=== PATIENT | male | born 1940 | race Caucasian/White ===

== ENCOUNTER 2017-11-14 18:01 | Inpatient (IN) ==
--- NOTE | 2017-11-14 18:07 | Emergency Department Note ---
Disposition Clinical Impression: Femur fracture, left Qualifiers: Encounter type: initial encounter Femur location: shaft Fracture type: closed Fracture morphology: spiral Fracture alignment: displaced Qualified Code(s): S72.342A - Displaced spiral fracture of shaft of left femur, initial encounter for closed fracture Disposition: Admitted As Inpatient Condition: Fair Forms: ED Satisfaction Letter Time of Disposition: 19:21 Fall HPI - General Chief Complaint: ED Fall Stated Complaint: Fall Time Seen by Provider: 11/14/17 18:04 Source: patient, EMS Mode of arrival: EMS Limitations: no limitations Nursing Notes Reviewed: Yes Vital Signs Reviewed: Yes - History of Present Illness HPI Narrative: 77-year-old was at track meet and was going down the bleacher steps and says his momentum got away from him and he went forward and fell down onto the bleachers. He has pain in the left hip. He has obvious external rotation and shortening on arrival. Pt Subjective Complaint: fall Onset (ago): Just SIDEHAND Fall From: standing Fall Witnessed: yes Place Fall Occurred: street Loss of Consciousness: none Prolonged Down Time?: no Symptoms Prior to Fall: none Context: tripped/slipped Location of injury - extremities: Left: hip Severity: moderate, severe Quality: aching Associated symptoms (after fall): Reports: denies All systems ED: reviewed and negative except as stated. Constitutional: Denies: fever, chills, weakness, weight change Eyes: Denies: eye pain, eye discharge, vision change ENT ED: Denies: ear pain, throat pain, dental pain, hearing loss, epistaxis, congestion, dysphagia Cardiovascular: Denies: chest pain, palpitations, dyspnea on exertion, edema, syncope Respiratory: Denies: cough, dyspnea, wheezes, hemoptysis, stridor Gastrointestinal: Denies: abdominal pain, nausea, vomiting, diarrhea, constipation, hematemesis, melena, hematochezia Genitourinary: Denies: urgency, dysuria, frequency, hematuria Musculoskeletal: Reports: arthralgia. Denies: back pain, neck pain, myalgia Integumentary: Denies: rash, abrasion, lesions Neurological: Denies: headache, weakness, numbness, paresthesias, confusion, abnormal gait, vertigo Psychiatric: Denies: anxiety, depression, suicidal thoughts, homicidal thoughts , auditory hallucinations, visual hallucinations Endocrine: Denies: fatigue Hematological/Lymphatic: Denies: easy bleeding, easy bruising Allergic/Immunologic: Denies: facial swelling, urticaria Physical Exam - General Limitations: no limitations General appearance: alert, in no apparent distress - Head Head exam: atraumatic, normocephalic, normal inspection - Eye Eye exam: Present: normal appearance - ENT ENT exam: normal exam, normal oropharynx, mucous membranes moist - Neck Neck exam: Present: normal inspection, full ROM, trachea midline - Chest Chest inspection: Present: normal inspection, symmetric chest wall rise - Respiratory Respiratory exam: Present: normal lung sounds bilaterally - Cardiovascular Cardiovascular exam: Present: regular rate, normal rhythm, normal heart sounds - Abdominal Exam Abdominal exam: Present: soft, Non-Tender. Absent: tenderness, distention, guarding, rebound, rigidity - Expanded Lower Extremity Exam Hip/Pelvis exam: Present: tenderness, external rotation, shortening Neurovascular/Tendon exam: Absent: motor deficit, sensory deficit, tendon deficit Gait: observed and normal - Back Exam Back exam: Present: normal inspection, full ROM. Absent: tenderness - Neurological Exam Neurological exam: Present: alert, oriented X3 - Psychiatric Psychiatric exam: Present: normal affect, normal mood - Skin Skin exam: Present: warm, dry, intact, normal color Course - Consultations Consultation #1: Discussed with , admit. Time: 19:00 Consultation #2: Discussed with adm Sachait. T Time: 19:20 Vital Signs Temperature 97.3 F L 11/14/17 18:02 Pulse Rate 78 11/14/17 18:02 Respiratory Rate 22 11/14/17 18:02 Blood Pressure 172/93 11/14/17 18:02 O2 Sat by Pulse Oximetry 98 11/14/17 18:02 Temperature 97.3 F L 11/14/17 18:02 Pulse Rate 78 11/14/17 18:02 Respiratory Rate 22 11/14/17 18:02 Blood Pressure 172/93 11/14/17 18:02 O2 Sat by Pulse Oximetry 98 11/14/17 18:02 Oxygen Delivery Oxygen Delivery Room Air Fall - Radiology Data Radiology results reviewed: Yes I reviewed the patient's radiology results.
[2017-11-14] MEDS ORDERED: Ondansetron 4 MG/2 ML VIAL IVP ONE (19:06)
[2017-11-14] MEDS ORDERED: *HR* FentaNYL (PF) 100 MCG/2 ML VIAL IVP ONE ×2 (19:06→21:24)
[2017-11-14 19:45] LABS: Bilirubin,Urine Negative (Negative); Blood,Urine Negative (Negative); Clarity,Urine Clear (Clear); Color,Urine Yellow (Yellow); Glucose,Urine (UA) Normal (Normal); Ketones,Urine Negative (Negative); Leukocyte Esterase,Urine Negative (Negative); Nitrite,Urine Negative (Negative); Protein,Urine 100 mg/dL (Neg-Trace); Specific Gravity,Urine 1.014 (1.010-1.025); Urobilinogen,Urine Normal (Normal)
[2017-11-14 19:48] LABS: Bacteria,Urine None Seen per hpf (None-Few); Hyaline Casts,Urine None Seen per lpf (None-Few); RBC,Urine 0-3 per hpf (0-3); Squamous Epithelial Cell,Urine Many per lpf (None-Few); WBC,Urine 0-3 per hpf (0-3)
[2017-11-14 19:54] LABS: Calcium 9.3 mg/dL (8.6-10.3); Potassium 4.4 mEq/L (3.5-5.1)
[2017-11-14 19:55] LABS: Basophils # 0.1 K/mcL (0.0-0.2); Basophils % 0.6 %; Eosinophils # 0.1 K/mcL (0.0-0.6); Eosinophils % 0.8 %; Hematocrit 38.5 % (37.5-50.1); Hemoglobin 12.9 g/dL (12.9-16.9); Immature Granulocytes % 0.3 % (0-4); Lymphocytes # 1.5 K/mcL (0.6-4.6); Lymphocytes % 16.8 %; Mean Corpuscular HGB Conc 33.5 g/dL (31.6-35.5); Mean Corpuscular Hemoglobin 30.9 pg (28.0-33.3); Mean Corpuscular Volume 92.1 fL (83.0-100.0); Mean Platelet Volume 11.2 fL (9.4-12.4); Monocytes # 0.5 K/mcL (0.0-1.3); Monocytes % 5.2 %; Neutrophils # 6.6 K/mcL (1.6-8.9); Platelet Count 196 K/mcL (140-400); Red Blood Count 4.18 M/mcL (4.19-5.50); Red Cell Distribution Width 14.3 % (11.5-14.5); Segmented Neutrophils % 76.3 %
[2017-11-14] MEDS ORDERED: Ondansetron 4 MG/2 ML VIAL IVP PRN (21:43)
[2017-11-14] MEDS ORDERED: Naloxone 0.4 MG/ML INJ IVP PRN (21:43)
[2017-11-14] MEDS ORDERED: Acetaminophen 325 MG TABLET PO PRN (21:43)
[2017-11-14] MEDS ORDERED: *HR* Promethazine 25 MG/ML VIAL IVP PRN (21:43)
[2017-11-14] MEDS ORDERED: Dextrose Gel 15 GM/37.5 ML TUBE PO PRN ×2 (21:53)
[2017-11-14] MEDS ORDERED: *HR* Dextrose 50 % in Water (Syg) 50 ML SYRINGE IVP PRN (21:53)
[2017-11-14] MEDS ORDERED: D5% in Water 1,000 ML IVC PRN (21:53)
--- NOTE | 2017-11-14 22:04 | Internal Med History&Physical ---
Date of Encounter: 11/14/17 Time of Encounter: 20:00 Internal Medicine - H&P: HPI Chief complaint: Fall with Left leg pain Admitted From: Emergency Dept Plans for Post Hospital Care: Home History of present illness: Mr. Handley is a 77 year old male with a known past medical history of hypertension, diabetes type II, and CKD-3 pt was presented to ER with Severe left leg pain and unable to bare any weight, which developed after a ground level fall this evening. According pt he was at track meet and was going down the bleacher steps and says his momentum got away from him and he went forward and fell down onto the bleachers. His Left leg X ray showed comminuted shaft width E displaced transverse fracture proximal left femoral diaphysis. He denied any CP / SOB. Denied any previous heart problems. He had Rt Knee repair and appendectomy in the past. Past Med Surg Social Fam HX - Past Medical History Medical history: diabetes, hyperlipidemia, hypertension Psychiatric history: no psych history - Past Surgical History Surgical History: appendectomy, orthopedic, other (Right knee repair) - Social History Smoking Status: Never smoker Smokeless Tobacco Status: No Alcohol use: none Drug use: none - Additional Family History Additional family history: Family hsitory reviewed and non contribuitory to current problem. Internal Medicine - H&P: Meds Acetaminophen [Tylenol Arthritis] 650 mg PO BID 11/14/17 [History] Allopurinol [Zyloprim 100 MG] 100 mg PO DAILY 11/14/17 [History] Cyanocobalamin (Vitamin B-12) [Vitamin B12] 1,000 mcg PO DAILY 11/14/17 [History ] Glucosamine/Chondr Isaacs A Sod [Glucosamine-Chondroitin Tablet] 1 each PO BID 11/14 [History] Lisinopril [Zestril] 5 mg PO DAILY 11/14/17 [History] Naproxen Sodium [Aleve] 220 mg PO Q12H PRN 11/14/17 [History] Pioglitazone [Actos] 15 mg PO DAILY 11/14/17 [History] glipiZIDE [Glipizide ER] 20 mg PO DAILY 11/14/17 [History] metFORMIN [Glucophage] 500 mg PO BIDWM 11/14/17 [History] 3 Allergy/AdvReac Type Severity Reaction Status Date / Time No Known Allergies Allergy Verified 11/14/17 19:21 All Systems PM: A 10-system review of systems was performed and is negative for pertinent findings except as documented above in the HPI. Review of systems: All the systems are reviewed everything is benign except the systems and symptoms I mentioned in the history of present illness - Constitutional Vitals: Temp Pulse Resp BP Pulse Ox 97.3 F L 84 16 163/88 94 11/14/17 18:02 11/14/17 21:22 11/14/17 21:22 11/14/17 21:22 11/14/17 21:22 General appearance: Present: A&O X 3, no acute distress, answers questions appropriately - Head Head exam: Present: atraumatic, normal inspection - Neck Neck exam general surgery: Present: supple - Respiratory Respiratory exam: Present: decreased breath sounds. Absent: rales, respiratory distress, rhonchi, wheezes - Cardiovascular Cardiovascular exam: Present: RRR, +S1, +S2. Absent: tachycardia - GI/Abdominal GI/Abdominal exam: Present: normal bowel sounds, soft. Absent: rebound, rigid, tenderness - Extremities Exam Extremities exam: Present: tenderness (severe tenderness in Left leg). Absent: calf tenderness, pedal edema Additional comments: Severe swelling noticed in Left leg at mid thigh region. No laceration / no ecchymosis noticed - Back Exam Back exam: Absent: CVA tenderness (L), CVA tenderness (R) - Neurological Exam Neurological exam: Present: alert, oriented X3 - Psychiatric Psychiatric exam: Present: normal affect, normal mood - Skin Skin exam: Absent: rash Internal Med - H&P Results - Labs CBC & Chem 7: 11/14/17 19:23 11/14/17 19:23 - Assessment and plan (1) Femur fracture, left Current Visit: Yes Status: Acute Assessment and plan: Admit the pt into Med Surg Reviewed X ray Left leg - noticed communited Left proximal femur fx Orth[facility] consulted Possible surgery in AM NPO after mid night IV hydration IV analgesics continue symptomatic and supportive care reviewed chest x-ray by myself- no acute infiltrates/no consolidation noticed will obtain EKG patient is at intermediate risk for major surgery like left femur repair Qualifiers: Encounter type: initial encounter Femur location: shaft Fracture type: closed Fracture morphology: spiral Fracture alignment: displaced Qualified Code(s): S72.342A - Displaced spiral fracture of shaft of left femur, initial encounter for closed fracture (2) HTN (hypertension) Current Visit: Yes Status: Acute Assessment and plan: resumed home meds Fairly controlled mostly due to pain started him on IV hydralazine PRN Qualifiers: Hypertension type: essential hypertension Qualified Code(s): I10 - Essential (primary) hypertension (3) DM2 (diabetes mellitus, type 2) Current Visit: Yes Status: Acute Assessment and plan: Held PO meds placed him on ISS check HbA1C Qualifiers: Diabetes mellitus manager intermediate insulin use: without skilled nursing use Chronic kidney disease stage: stage 2 (mild) Qualified Code(s): E11.22 - Type 2 diabetes mellitus with diabetic chronic kidney disease; N18.2 - Chronic kidney disease, stage 2 (mild); N18.2 - Chronic kidney disease, stage 2 (mild) (4) CKD (chronic kidney disease) stage 2, GFR 60-89 ml/min Current Visit: Yes Status: Acute Assessment and plan: Stable Cr..At baseline (5) Left leg pain Current Visit: Yes Status: Acute (6) DVT prophylaxis Current Visit: Yes Status: Acute Assessment and plan: on SQ heparin now after surgery will switch to Lovenox 30mg renally dosed - Time Spent With Patient Total time spent is greater than 50% in coordination of care (as documented) at patient's floor/unit and/or counseling patient:
[2017-11-15] MEDS: 0.9 % Sodium Chloride 1,000 ML IVC SCH ×2 (00:16→13:15)
[2017-11-15] MEDS: *HR* HYDROcodone/Acet 5/325 mg TABLET PO PRN ×3 (00:30→17:18)
[2017-11-15] MEDS: *HR* FentaNYL (PF) 100 MCG/2 ML VIAL IVP PRN ×4 (02:07→23:24)
[2017-11-15 05:23] LABS: Basophils % 0.4 %; Eosinophils # 0.1 K/mcL (0.0-0.6); Eosinophils % 0.7 %; Hematocrit 36.5 % (37.5-50.1); Hemoglobin 12.2 g/dL (12.9-16.9); Immature Granulocytes % 0.3 % (0-4); Lymphocytes # 1.9 K/mcL (0.6-4.6); Lymphocytes % 25.6 %; Mean Corpuscular HGB Conc 33.4 g/dL (31.6-35.5); Mean Corpuscular Hemoglobin 31.3 pg (28.0-33.3); Mean Corpuscular Volume 93.6 fL (83.0-100.0); Monocytes # 0.6 K/mcL (0.0-1.3); Monocytes % 8.6 %; Neutrophils # 4.7 K/mcL (1.6-8.9); Platelet Count 180 K/mcL (140-400); Red Cell Distribution Width 14.2 % (11.5-14.5); Segmented Neutrophils % 64.4 %
[2017-11-15 05:27] LABS: INR 1.1; Prothrombin Time 11.7 Seconds (9.4-12.1)
[2017-11-15 05:43] LABS: BUN/Creatinine Ratio 17 (6-26); Blood Urea Nitrogen 22 mg/dL (8-23); Calcium 8.8 mg/dL (8.6-10.3); Carbon Dioxide 23 mEq/L (23-29); Chloride 108 mEq/L (98-107); Glucose 197 mg/dL (70-105); Osmolality,Calculated 295 (280-300); Potassium 4.2 mEq/L (3.5-5.1); Sodium 138 mEq/L (136-145); eGFR For African Americans > 60 (> 60); eGFR For Non-African Americans 52 (> 60)
[2017-11-15] MEDS: *HR* Heparin 5,000 UNIT/ML VIAL SQ SCH ×2 (07:15→16:59)
[2017-11-15] MEDS: Insulin LISPRO 300 UNITS/3 ML VIAL SQ SCH ×3 (08:16→16:57)
[2017-11-15] MEDS: Cyanocobalamin (B-12) 1,000 MCG TABLET PO SCH (08:19)
[2017-11-15 08:59] LABS: Estimated Average Glucose 151 mg/dl; Hemoglobin A1C 6.9 %
[2017-11-15] MEDS ORDERED: NON-FORMULARY MEDICATION 1 EACH EACH (Acetaminophen [Tylenol Arthritis] 650 MG) PO SCH (09:00)
--- NOTE | 2017-11-15 10:41 | Orthopedic Consult Note ---
Date of Encounter: 11/15/17 Time of Encounter: 09:15 Assessment and Plan (1) Femur fracture, left Current Visit: Yes Status: Acute Left femural shaft fracture will require surgical intervention. Plan for left hip IM nailing tomorrow by Dr. Rios. I discussed the procedure as well as r/b/ a with patient and family and they expressed understanding. All questions answered, consent signed and placed in chart. NPO after midnight tonight. Pain control per hospitalist. Qualifiers: Encounter type: initial encounter Femur location: shaft Fracture type: closed Fracture morphology: spiral Fracture alignment: displaced Qualified Code(s): S72.342A - Displaced spiral fracture of shaft of left femur, initial encounter for closed fracture (2) DVT prophylaxis Current Visit: Yes Status: Acute POSTOP - will require lovenox for 2 weeks then transition to aspirin 325mg daily for 4 weeks. 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 Handley is a 77 year old male who presented to the ER last night for left hip pain. He tripped while walking on a flat walkway on [address] and fell landing on the left side. He had immediate pain to left hip and not able to ambulate afterwards. He normally is very active and ambulates well. Currently pain is well controlled and described as aching to outside of left hip, does not radiate down leg or into back. Movement of the leg makes pain worse, better at rest. Denies any numbness or tingling to extremity. Denies denies hitting head, LOC or pain anywhere else. Denies chest pain, SOB, fevers. Past Med Surg Social Fam HX - Past Medical History Medical history: diabetes, hyperlipidemia, hypertension Psychiatric history: no psych history - Past Surgical History Surgical History: appendectomy, orthopedic, other - Social History Smoking Status: Never smoker Smokeless Tobacco Status: No Alcohol use: none Drug use: none - Family History Mother Hx Family Endocrine Disorder: Yes (diabetes) Medications and Allergies Acetaminophen [Tylenol Arthritis] 650 mg PO BID 11/14/17 [History] Allopurinol [Zyloprim 100 MG] 100 mg PO DAILY 11/14/17 [History] Cyanocobalamin (Vitamin B-12) [Vitamin B12] 1,000 mcg PO DAILY 11/14/17 [History ] Glucosamine/Chondr Isaacs A Sod [Glucosamine-Chondroitin Tablet] 1 each PO BID 11/14 [History] Lisinopril [Zestril] 5 mg PO DAILY 11/14/17 [History] Naproxen Sodium [Aleve] 220 mg PO Q12H PRN 11/14/17 [History] Pioglitazone [Actos] 15 mg PO DAILY 11/14/17 [History] glipiZIDE [Glipizide ER] 20 mg PO DAILY 11/14/17 [History] metFORMIN [Glucophage] 500 mg PO BIDWM 11/14/17 [History] 3 Allergy/AdvReac Type Severity Reaction Status Date / Time No Known Allergies Allergy Verified 11/14/17 19:21 All Systems Reviewed: The remainder of the systems were reviewed and are negative - Constitutional Constitutional: as per HPI - Cardiovascular Cardiovascular: as per HPI - Respiratory Respiratory: as per HPI - Musculoskeletal Musculoskeletal: as per HPI Physical Exam - Constitutional Vitals: Temp Pulse Resp BP Pulse Ox 98.7 F 77 18 155/94 95 11/15/17 07:57 11/15/17 07:57 11/15/17 07:57 11/15/17 07:57 11/15/17 07:57 - Hip left Tenderness with palpation: anterior, lateral (no open wounds or lesions noted to left hip, LLE is shortened and externally rotated, moderate tenderness to palpation of lateral hip, no calf tenderness, ROM of hip restricted secondary to known fracture. good dorsiflexion of foot. grossly NV intact) Results - Labs Result Diagrams: 11/15/17 05:05 11/15/17 05:05 Labs: Abnormal lab results RBC 3.90 M/mcL (4.19-5.50) L 11/15/17 05:05 Hgb 12.2 g/dL (12.9-16.9) L 11/15/17 05:05 Hct 36.5 % (37.5-50.1) L 11/15/17 05:05 Chloride 108 mEq/L (98-107) H 11/15/17 05:05 Creatinine 1.33 mg/dL (0.70-1.30) H 11/15/17 05:05 Est GFR (Non-Af Amer) 52 (> 60) L 11/15/17 05:05 Glucose 197 mg/dL (70-105) H 11/15/17 05:05 POC Glucose 148 mg/dL (68-89) H 11/15/17 08:08 Hemoglobin A1c 6.9 % (-5.6) H 11/15/17 05:05 Urine Protein 100 mg/dL (Neg-Trace) H 11/14/17 19:37 Ur Squamous Epith Cells Many per lpf (None-Few) H 11/14/17 19:37 H & H 11/15/17 Range/Units 05:05 Hgb 12.2 L (12.9-16.9) g/dL Hct 36.5 L (37.5-50.1) % All other labs normal. - Diagnostic results Hip x-ray: report reviewed, image reviewed Consult Discharge Plan - Plan Referrals: Gabriel So DO [Primary Care Provider] - - Attending Attestation Case and plan of care discussed with supervising physician who was available for all aspects of care.
--- NOTE | 2017-11-15 12:25 | Internal Med Progress Note ---
Date of Encounter: 11/15/17 Time of Encounter: 12:23 - Assessment and plan (1) Femur fracture, left Current Visit: Yes Status: Acute Assessment and plan: Admit the pt into Med Surg X ray Left leg communited Left proximal femur fx Ortho [facility] consulted Surgery in AM NPO after mid night IV hydration Pain control patient is at intermediate risk for major surgery like left femur repair Qualifiers: Encounter type: initial encounter Femur location: shaft Fracture type: closed Fracture morphology: spiral Fracture alignment: displaced Qualified Code(s): S72.342A - Displaced spiral fracture of shaft of left femur, initial encounter for closed fracture (2) HTN (hypertension) Current Visit: Yes Status: Acute Assessment and plan: resumed home meds IV hydralazine PRN Qualifiers: Hypertension type: essential hypertension Qualified Code(s): I10 - Essential (primary) hypertension (3) DM2 (diabetes mellitus, type 2) Current Visit: Yes Status: Acute Assessment and plan: Held PO meds placed him on ISS HbA1C was 6.9 Qualifiers: Diabetes mellitus nurseryman assistant insulin use: without custodial use Chronic kidney disease stage: stage 2 (mild) Qualified Code(s): E11.22 - Type 2 diabetes mellitus with diabetic chronic kidney disease; N18.2 - Chronic kidney disease, stage 2 (mild); N18.2 - Chronic kidney disease, stage 2 (mild) (4) Left leg pain Current Visit: Yes Status: Acute (5) DVT prophylaxis Current Visit: Yes Status: Acute Assessment and plan: on SQ heparin now after surgery will switch to Lovenox 30mg renally dosed (6) CKD (chronic kidney disease) stage 3, GFR 30-59 ml/min Current Visit: Yes Status: Acute Assessment and plan: Stable, continue IV fluids - Time Spent With Patient Total time spent is greater than 50% in coordination of care (as documented) at patient's floor/unit and/or counseling patient: - Subjective Interval history: Pain on the left hip is 7 out of 10 in intensity, denies any shortness of breath or chest pain, no fevers, no chills, no abdominal pain or dysuria - Constitutional Vitals: Temp Pulse Resp BP Pulse Ox 98.4 F 80 18 152/87 93 11/15/17 11:44 11/15/17 11:44 11/15/17 11:44 11/15/17 11:44 11/15/17 11:44 General appearance: Present: A&O X 3, no acute distress, answers questions appropriately - Head Head exam: Present: atraumatic, normocephalic - Eye Eye exam: Present: PERRL, conjuntiva pink, sclera anicteric Pupils: Present: PERRL - Neck Neck exam general surgery: Present: supple, trachea midline. Absent: lymphadenopathy - Respiratory Respiratory exam: Present: CTAB. Absent: accessory muscle use, rales, rhonchi, wheezes - Cardiovascular Cardiovascular exam: Present: RRR, +S1, +S2. Absent: diastolic murmur, gallop, rubs, systolic murmur - GI/Abdominal GI/Abdominal exam: Present: normal bowel sounds, soft, no peritoneal signs. Absent: distended, tenderness - Extremities Exam Extremities exam: Present: warm, radial pulses palpable and symmetrical. Absent : calf tenderness, cyanotic, pedal edema - Neurological Exam Neurological exam: Present: CN II-XII intact, oriented X3, no focal deficits. Absent: pronater drift, facial droop, speech deficit - Skin Skin exam: Present: dry, intact Additional comments: Left hip is swollen, left lower extremity rotated externally, no ecchymosis Internal Medicine: Result - Labs CBC & Chem 7: 11/15/17 05:05 11/15/17 05:05 Labs: Short CBC 11/15/17 Range/Units 05:05 WBC 7.2 (4.3-11.1) K/mcL Hgb 12.2 L (12.9-16.9) g/dL Hct 36.5 L (37.5-50.1) % Plt Count 180 (140-400) K/mcL Neutrophils # 4.7 (1.6-8.9) K/mcL BMP 11/15/17 05:05 Sodium 138 Potassium 4.2 Chloride 108 H Carbon Dioxide 23 BUN 22 Creatinine 1.33 H Glucose 197 H Calcium 8.8 - ABG Interpretation ABG results: PT/INR, D-dimer PT 11.7 Seconds (9.4-12.1) 11/15/17 05:05 Consult Discharge Plan - Plan Referrals: Gabriel So DO [Primary Care Provider] -
--- NOTE | 2017-11-15 19:59 | Electrocardiograph Report ---
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
[2017-11-15] MEDS ORDERED: Insulin LISPRO 300 UNITS/3 ML VIAL SQ SCH (21:00)
--- NOTE | 2017-11-16 00:23 | Anesthesia Evaluation PreOp ---
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 WORKER History: Denies Any Significant HX Other Medical History: Renal (ckd), Diabetes Type II (oral medications only) Anesthesia History: Past Anesthesia (appendectomy, orthopedic, other (Right knee repair)) Alcohol Use: none Drug use: none Medications and Allergies Acetaminophen [Tylenol Arthritis] 650 mg PO BID 11/14/17 [History] Allopurinol [Zyloprim 100 MG] 100 mg PO DAILY 11/14/17 [History] Cyanocobalamin (Vitamin B-12) [Vitamin B12] 1,000 mcg PO DAILY 11/14/17 [History ] Glucosamine/Chondr Isaacs A Sod [Glucosamine-Chondroitin Tablet] 1 each PO BID 11/14 [History] Lisinopril [Zestril] 5 mg PO DAILY 11/14/17 [History] Naproxen Sodium [Aleve] 220 mg PO Q12H PRN 11/14/17 [History] Pioglitazone [Actos] 15 mg PO DAILY 11/14/17 [History] glipiZIDE [Glipizide ER] 20 mg PO DAILY 11/14/17 [History] metFORMIN [Glucophage] 500 mg PO BIDWM 11/14/17 [History] 3 Allergy/AdvReac Type Severity Reaction Status Date / Time No Known Allergies Allergy Verified 11/14/17 19:21 - Meds/Allergy Pre-op Review Medications Reviewed: Yes Allergies Reviewed: Yes Beta Blockers on Current Med List: No Anesthesia Results - Labs 11/15/17 05:05 11/15/17 05:05 - Imaging EKG: report reviewed, image reviewed (SR) Anesthesia Exam Last Vital Signs Temp 99.0 F 11/15/17 23:10 Pulse 95 11/15/17 23:10 Resp 18 11/15/17 23:10 BP 170/84 11/15/17 23:10 Pulse Ox 93 11/15/17 23:10 Weight: 109 kg Anesthesia Assess/Plan ASA Score: 3 Anesthetic Plan: General Monitoring Plan: Standard Monitors Recovery Plan: PACU
[2017-11-16] MEDS: *HR* Heparin 5,000 UNIT/ML VIAL SQ SCH ×2 (06:21→16:57)
[2017-11-16] MEDS: *HR* FentaNYL (PF) 100 MCG/2 ML VIAL IVP PRN ×2 (06:21→10:32)
[2017-11-16] MEDS: Cyanocobalamin (B-12) 1,000 MCG TABLET PO SCH (08:02)
[2017-11-16] MEDS: Insulin LISPRO 300 UNITS/3 ML VIAL SQ SCH ×3 (08:03→16:57)
[2017-11-16] MEDS: *HR* HYDROcodone/Acet 5/325 mg TABLET PO PRN (08:59)
[2017-11-16] MEDS ORDERED: *HR* FentaNYL (PF) 100 MCG/2 ML VIAL IVP ONE (11:15)
--- NOTE | 2017-11-16 13:25 | Internal Med Progress Note ---
<Vahid Ashley - Last Filed: 11/16/17 13:20> Date of Encounter: 11/16/17 Time of Encounter: 07:30 - Constitutional Vitals: Temp Pulse Resp BP Pulse Ox 98.6 F 99 16 174/95 92 11/16/17 10:34 11/16/17 10:34 11/16/17 10:34 11/16/17 10:34 11/16/17 10:34 General appearance: Present: A&O X 3, no acute distress, answers questions appropriately Internal Medicine: Result - Labs CBC & Chem 7: 11/15/17 05:05 11/15/17 05:05 - ABG Interpretation ABG results: PT/INR, D-dimer PT 11.7 Seconds (9.4-12.1) 11/15/17 05:05 Consult Discharge Plan - Plan Referrals: Gabriel So DO [Primary Care Provider] - <Brian Springer - Last Filed: 11/16/17 17:20> Date of Encounter: 11/16/17 - Constitutional Vitals: Temp Pulse Resp BP Pulse Ox 98.6 F 99 16 174/95 92 11/16/17 10:34 11/16/17 10:34 11/16/17 10:34 11/16/17 10:34 11/16/17 10:34 Internal Medicine: Result - Labs CBC & Chem 7: 11/15/17 05:05 11/15/17 05:05 - ABG Interpretation ABG results: PT/INR, D-dimer PT 11.7 Seconds (9.4-12.1) 11/15/17 05:05 - Attending Attestation I performed an independent interview and exam of this patient. I discussed the case with Dr. Enrique, internal medicine financial analyst intern. I agree with his findings, assessment and plan. She to have operative repair of his femur today. Patient states his pain is controlled. Exam: Temperature 98.6 pulse 99 respirations 16 blood pressure 174/95, O2 sat 92% on room air. General no acute distress, awake alert and oriented 3 Skin warm and dry Neck supple Lungs clear heart Regular rate and rhythm without murmur Abdomen nontender Extremities no edema Logical nonfocal Labs reviewed. Hemoglobin 12.2, by mouth N 22, creatinine 1.33. Blood pressure remains elevated, we will add Lopressor 25 mg by mouth twice a day. It may be slightly elevated due to pain, although he has been persistently elevated today and he has a history of hypertension. Patient otherwise medically optimized for surgery.
[2017-11-16] MEDS ORDERED: Famotidine 20 MG/2 ML VIAL ONE (15:21)
[2017-11-16] MEDS ORDERED: Acetaminophen IV 1,000 MG/100 ML INFUS..BTL ONE (15:21)
[2017-11-16] MEDS ORDERED: *HR* FentaNYL (PF) 100 MCG/2 ML VIAL ONE ×3 (17:56→18:57)
[2017-11-16] MEDS ORDERED: *HR* Propofol 200 MG/20 ML VIAL IVP ONE (17:56)
[2017-11-16] MEDS ORDERED: *HR* Rocuronium Bromide 50 MG/5 ML VIAL ONE (18:48)
[2017-11-16] MEDS ORDERED: Dexamethasone 4 MG/ML VIAL ONE (18:48)
[2017-11-16] MEDS ORDERED: *HR* Succinylcholine 200 MG/10 ML VIAL IVP ONE (18:48)
[2017-11-16] MEDS ORDERED: Ondansetron 4 MG/2 ML VIAL ONE (18:48)
[2017-11-16] MEDS ORDERED: Lidocaine -MPF 2% 2 ML VIAL ONE (18:48)
--- NOTE | 2017-11-16 19:45 | Operative Note ---
Date of procedure: 11/16/17 Pre-op diagnosis: Left hip subtrochanteric proximal femur fracture Post-op diagnosis: other (Left proximal femoral shaft fracture, displaced) Procedure: Left proximal femur intramedullary nailing with cerclage Implants: Synthes TFN-A long nail Arthrex Fibertape cerclage suture Anesthesia: SUMIT Surgeon: Ephraim Rios Was there an employee relations assistant present: Yes Criminal Researcher: Catrachita Mcqueen Estimated blood loss (cc): 300 Tourniquet Time (Minutes): 0 Specimen: 0 Condition: stable Disposition: PACU Procedure in Detail: The patient received IV antibiotics in the holding area. He was brought to the operating room, sign in was performed. The patient underwent general anesthesia on the hospital bed. He was then transferred to the fracture table in supine position. The patient was positioned with the support groin post, the affected left lower extremity in the traction mancuso and the contralateral lower extremity in a well-padded limb mancuso with a hip flexed and abducted out of the way. Fluoroscopy was then brought in, the fractures visualized, and the fracture reduced with traction. The initial x-rays appeared to be a subtrochanteric fracture, however, this is a displaced spiral proximal femoral shaft fracture, extending into the subtrochanteric region. A long nail will be used. We checked on AP and true lateral views, noting the anterior displacement of the proximal fragment. Once satisfactory the left hip, from the pelvis down to the knee, was prepped and draped in usual sterile fashion. A timeout was performed. The level of the greater trochanter was palpated, a 4-5 cm oblique incision was made just proximally, followed by Bovie dissection. The patient had a very deep subcutaneous fat layer. The incision was extended 3 cm. The hip abductor was sharply split in line with its fibers with a curved Mccollum scissors. The tip of the greater trochanter was palpable. A curved awl was then positioned on the tip. Its position was checked on fluoroscopy, slightly advanced, and we checked the lateral view. Once appropriately positioned, the aggressive awl was then used to open the proximal femur down to level of the lesser trochanter. A guidewire was inserted down the awl, up to the fracture site. The proximal fragment was displaced anteriorly. The slight bend the tip of the guidewire was used to go across the fracture site, and driven down to the distal femur. Then measured the length of the guidewire. The Synthes long fracture reduction tool was introduced over the guidewire to help reduce the proximal fragment; however, this too much displacement. The fracture would have to be opened. A 10 cm long lateral incision centered over the fracture. I sharply dissected down to the muscle fascia. The vastus lateralis was then elevated off the lateral intermuscular septum, exposing the femoral shaft. Perforators were cauterized with the Bovie. This was a spiral type fracture and there was gross displacement of the fracture. I tried to put a Conroy clamp around the fracture but the clamp jaws were too small in relation to the clinic suture of his thigh. It was decided to use the cerclage wire to this help with the reduction and maintain it. We used the Arthrex fiber tape cerclage system. This was loaded into the hook, which was then placed around the fracture fragments, hugging against the bone. The fiber tape was pulled through and the hook removed. Fiber tape was appropriately threaded through the loop. We had 2 passes around the fracture. One half hitch knot was placed and the fiber tape was then cinched down. The tensioning device was then used, applying 50 pounds of tension. This reduced and maintain reduction well. We then checked on fluoroscopy and adjusted rotation since was a spiral type fracture. Two more half hitches were then placed and once again tensioning to 50 pounds. This secured the fiber tape well. The ends were then cut. I started reaming with an 11 mm reamer and stopped at 13 with good chatter. A 380 mm long TFN-A nail with 130 degree neck angle, 12 mm diameter, was assembled , and appropriately inserted into the proximal femur. The appropriate level was checked under fluoroscopy. The trochars were placed in the jig at 125 degree neck angle was then positioned against the skin, and the radiolucent guide was used to assist in positioning. Once satisfactory a 2.5 cm incision was made, the fascia was bluntly split along with the muscle fibers of the vastus lateralis. The triple trocar was advanced up against the lateral cortex. The guidepin was then driven up into the femoral head, checking AP and lateral views. A 95 mm long helical blade was chosen. Overdrilled the guidewire, and the helical blade was tapped in place over the guidewire in standard technique. Once close to the edge of the femoral head, the setscrew was then screwed down. The technique of perfect circles was used for distal locking. Fluoroscopy was appropriately set up and the targeting was adjusted. The dynamic hole was located on the lateral view, a 1 cm longitudinal incision was made on the lateral side of the distal thigh. The drill was then positioned in the lateral cortex and using fluoroscopic guidance driven across to the medial side, through the nail. The depth was measured and a 48 mm by 5 mm bicortical screw was placed. All trochars and jig were removed. Final fluoroscopy shots were taken and saved showing good AP and lateral views of the hip and also distally at the tip of the nail. On the lateral view of the fracture site, it was noticed some slight distraction. I could palpate this, about 5 mm of distraction. The fracture was probably distracted when the nail was inserted. The distal incision was lengthened to 3 cm long. The distal static locking screw was removed. All traction from the leg was taken off and the heel impacted. This close and fracture gap by about 50%. A new 50 mm long bicortical screw was placed in dynamic mode.. The wounds were irrigated with normal saline. Fascia over the abductors was closed with 1 Vicryl [id number] stitches, including the deep subcutaneous fat layer. The vastus lateralis was tacked back down to the lateral muscle septum with #1 Vicryl sutures. Also closing the deep layer with #1 Vicryl. Subcutaneous tissues were closed with 2-0 Vicryl, and the skin incisions were closed with the Zipline system. Sterile dressings were applied. The patient was transferred to hospital bed where he was extubated and taken to recovery room in stable condition.
[2017-11-16] MEDS ORDERED: *HR* Morphine 10 MG/ML VIAL ONE (19:48)
[2017-11-16] MEDS ORDERED: *HR* Metoprolol 5 MG/5 ML VIAL IVP ONE (20:52)
[2017-11-16] MEDS ORDERED: *HR* Metoprolol 5 MG/5 ML VIAL IVP SCH (21:00)
[2017-11-16] MEDS ORDERED: *HR* Promethazine 25 MG/ML VIAL IVP PRN (21:19)
[2017-11-16] MEDS ORDERED: *HR* Dextrose 50 % in Water (Syg) 50 ML SYRINGE IVP PRN (21:19)
[2017-11-16] MEDS ORDERED: D5% in Water 1,000 ML IVC PRN (21:19)
[2017-11-16] MEDS ORDERED: Ondansetron 4 MG/2 ML VIAL IVP PRN (21:19)
[2017-11-16] MEDS ORDERED: Naloxone 0.4 MG/ML INJ IVP PRN ×2 (21:19)
[2017-11-16] MEDS ORDERED: Dextrose Gel 15 GM/37.5 ML TUBE PO PRN ×2 (21:19)
--- NOTE | 2017-11-16 21:19 | Anesthesia Evaluation Post Op ---
Date of Encounter: 11/16/17 Time of Encounter: 21:18 - Vital Signs Vital Signs: Last Vital Signs Temp 98.5 F 11/16/17 21:08 Pulse 86 11/16/17 21:08 Resp 20 11/16/17 21:08 BP 154/91 11/16/17 21:08 Pulse Ox 96 11/16/17 21:08 - Lungs Lungs: Clear Ascult./Percussion - Airway Airway: Non-obstructed - Cardiovascular Regular Rate - Mental Status Mental Status: Alert & Oriented, Answers Appropriately - Pain Pain Scale: 2 - Nausea Vomiting Nausea Vomiting: Not Present - Hydration Hydration: NPO - Discharge PostOp Status: Transfer Patient to floor
[2017-11-16] MEDS: 0.9 % Sodium Chloride 1,000 ML IVC SCH (22:14)
[2017-11-16] MEDS: *HR* Enoxaparin 30 MG/0.3 ML SYRINGE SQ SCH (22:14)
[2017-11-17] MEDS ORDERED: CeFAZolin Pre 2,000 MG/100 ML 2,000 MG/100 ML BAG IVPB SCH
[2017-11-17] MEDS: ceFAZolin 2,000 MG in D5% in Water 100 ML IVPB SCH ×2 (00:41→07:32)
[2017-11-17 02:54] LABS: Calcium 8.9 mg/dL (8.6-10.3); Potassium 4.9 mEq/L (3.5-5.1)
[2017-11-17 02:55] LABS: Hematocrit 38.1 % (37.5-50.1); Hemoglobin 12.7 g/dL (12.9-16.9)
[2017-11-17] MEDS: *HR* Enoxaparin 30 MG/0.3 ML SYRINGE SQ SCH ×2 (06:21→16:34)
[2017-11-17] MEDS: Insulin LISPRO 300 UNITS/3 ML VIAL SQ SCH ×4 (07:32→20:33)
[2017-11-17] MEDS: Cyanocobalamin (B-12) 1,000 MCG TABLET PO SCH (07:33)
[2017-11-17] MEDS: Acetaminophen 325 MG TABLET PO PRN ×2 (09:50→16:34)
[2017-11-17] MEDS: 0.9 % Sodium Chloride 1,000 ML IVC SCH (12:56)
--- NOTE | 2017-11-17 13:22 | Internal Med Progress Note ---
<Vahid Ashley - Last Filed: 11/17/17 13:41> Date of Encounter: 11/17/17 Time of Encounter: 13:20 - Assessment and plan (1) Femur fracture, left Current Visit: Yes Status: Acute Assessment and plan: Patient has surgery yesterday. Patient states he is doing well. Patient a little somnolent this morning but I think this secondary to administration of pain medications. Physical therapy states the patient had a difficult time getting to chair today. They are suggesting that he would need placement in an extended care facility for rehabilitation. Recommend physical therapy as tolerated. This will probably happen Monday. Followed by Ortho. Qualifiers: Encounter type: initial encounter Femur location: shaft Fracture type: closed Fracture morphology: spiral Fracture alignment: displaced Qualified Code(s): S72.342A - Displaced spiral fracture of shaft of left femur, initial encounter for closed fracture (2) DM2 (diabetes mellitus, type 2) Current Visit: Yes Status: Acute Assessment and plan: Currently on sliding scale. Glucose is elevated at 353 today. We will increase sliding scale. 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 Blood pressure improved from yesterday to today. Qualifiers: Hypertension type: essential hypertension Qualified Code(s): I10 - Essential (primary) hypertension (4) Left leg pain Current Visit: Yes Status: Acute Assessment and plan: See above. (5) CKD (chronic kidney disease) stage 3, GFR 30-59 ml/min Current Visit: Yes Status: Acute Assessment and plan: Stable. (6) DVT prophylaxis Current Visit: Yes Status: Acute Assessment and plan: 30 mg subq enoxaparin every 12 hours. - Subjective Interval history: Patient had left hip surgery yesterday. No events overnight. Nurse reports the patient was a little more somnolent today. Has been receiving pain medications. Physical therapy tried to get patient up and moving and he did not tolerate this too well. There recommendations for possible extended care facility placement. Patient may have to stay to the weekend for further evaluation and placement may occur on Monday. No other complaints at this time - Constitutional Vitals: Temp Pulse Resp BP Pulse Ox 98 F 80 16 119/81 98 11/17/17 11:28 11/17/17 11:28 11/17/17 11:28 11/17/17 11:28 11/17/17 11:28 General appearance: Present: A&O X 3, no acute distress, answers questions appropriately - Head Head exam: Present: atraumatic, normal inspection - ENT ENT exam: Present: mucous membranes moist, normal exam - Neck Neck exam general surgery: Present: supple, trachea midline - Respiratory Respiratory exam: Present: decreased breath sounds - Cardiovascular Cardiovascular exam: Present: RRR, +S1, +S2. Absent: JVD - GI/Abdominal GI/Abdominal exam: Present: soft, no peritoneal signs. Absent: firm, rebound, rigid, tenderness - Neurological Exam Neurological exam: Present: CN II-XII intact, oriented X3 Internal Medicine: Result - Labs CBC & Chem 7: 11/17/17 01:46 11/17/17 01:46 Labs: Short CBC 11/17/17 Range/Units 01:46 Hgb 12.7 L (12.9-16.9) g/dL Hct 38.1 (37.5-50.1) % BMP 11/17/17 01:46 Sodium 134 L Potassium 4.9 Chloride 101 Carbon Dioxide 23 BUN 23 Creatinine 1.53 H Glucose 343 H Calcium 8.9 - ABG Interpretation ABG results: PT/INR, D-dimer PT 11.7 Seconds (9.4-12.1) 11/15/17 05:05 - Impressions Impressions Femur X-Ray 11/16/17 00:00 IMPRESSION: Intraprocedural fluoroscopic spot images as above. See separate procedure report for more information. D/ / 11/16/2017 19:38:32 Kimber Luther MD / [email or web address] Interpreting Provider: Kimber Luther MD Fluoroscopy 11/16/17 00:00 IMPRESSION: Intraprocedural fluoroscopic spot images as above. See separate procedure report for more information. Mary/ / 11/16/2017 19:38:32 Kimber Luther MD / patricia Interpreting Provider: Kimber Luther MD - VTE Documentation of Mechanical Device: Intermittent pneumatic compression device Consult Discharge Plan - Plan Referrals: Gabriel So DO [Primary Care Provider] - <Brian Springer - Last Filed: 11/17/17 13:51> Date of Encounter: 11/17/17 - Constitutional Vitals: Temp Pulse Resp BP Pulse Ox 98 F 80 16 119/81 98 11/17/17 11:28 11/17/17 11:28 11/17/17 11:28 11/17/17 11:28 11/17/17 11:28 Internal Medicine: Result - Labs CBC & Chem 7: 11/17/17 01:46 11/17/17 01:46 Labs: Short CBC 11/17/17 Range/Units 01:46 Hgb 12.7 L (12.9-16.9) g/dL Hct 38.1 (37.5-50.1) % BMP 11/17/17 01:46 Sodium 134 L Potassium 4.9 Chloride 101 Carbon Dioxide 23 BUN 23 Creatinine 1.53 H Glucose 343 H Calcium 8.9 - ABG Interpretation ABG results: PT/INR, D-dimer PT 11.7 Seconds (9.4-12.1) 11/15/17 05:05 - Impressions Impressions Femur X-Ray 11/16/17 00:00 IMPRESSION: Intraprocedural fluoroscopic spot images as above. See separate procedure report for more information. D/ / 11/16/2017 19:38:32 Kimber Luther MD / patricia Interpreting Provider: Kimber Luther MD Fluoroscopy 11/16/17 00:00 IMPRESSION: Intraprocedural fluoroscopic spot images as above. See separate procedure report for more information. D/ / 11/16/2017 19:38:32 Kimber Luther MD / patricia Interpreting Provider: Kimber Luther MD - Attending Attestation I performed an independent interview and examine this patient. I agree with the findings, assessment, and plan of Dr. Ashley, internal medicine chemist intern. Patient is doing well. Physiotherapy as ordered. Anticipate transfer to an extended care facility once this can be arranged. He remains hemodynamically stable. Hemoglobin is stable. Redness slightly worse today at 1.53, we will avoid any unnecessary nephrotoxins and encourage good oral intake.
[2017-11-17] MEDS: *HR* FentaNYL (PF) 100 MCG/2 ML VIAL IVP PRN (15:12)
[2017-11-17] MEDS ORDERED: 0.9 % Sodium Chloride 250 ML IVC ONE (16:03)
[2017-11-17] MEDS ORDERED: 0.9 % Sodium Chloride 250 ML ONE (16:06)
--- NOTE | 2017-11-17 16:26 | Orthopedics Progress Note ---
Date of Encounter: 11/17/17 Time of Encounter: 13:45 - Assessment and Plan (1) Femur fracture, left Current Visit: Yes Status: Acute POD#1 s/p - Left hip intramedullary nailing with cerclage 11/16/17 Continue in therapy. TTWB. Continue ice to left hip as needed. Pain control per hospitalist. Dressings to be changed tomorrow. Patient accepted to [facility] tomorrow for rehab Will require lovenox for 2 weeks then aspirin 325mg daily for 4 weeks for DVT prophylaxis. Will follow up with Catrachita Mcqueen PA-C in AB office at P[facility]. Qualifiers: Encounter type: initial encounter Femur location: shaft Fracture type: closed Fracture morphology: spiral Fracture alignment: displaced Qualified Code(s): S72.342A - Displaced spiral fracture of shaft of left femur, initial encounter for closed fracture (2) DVT prophylaxis Current Visit: Yes Status: Acute POSTOP - will require lovenox for 2 weeks then transition to aspirin 325mg daily for 4 weeks. 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 Pain tolerable. Denies calf pain or N/T to extremity. States therapy is going well. Objective Vital signs: Vital Signs Temp Pulse Resp BP Pulse Ox 11/17/17 16:02 106 96 11/17/17 15:35 96 11/17/17 15:33 110 11/17/17 15:05 99.1 F 112 15 147/75 92 11/17/17 11:28 98 F 80 16 119/81 98 11/17/17 07:12 98.9 F 107 16 136/78 95 11/17/17 04:11 99.7 F H 105 16 132/87 97 11/17/17 01:00 98.3 F 95 15 125/82 97 11/17/17 00:06 99.6 F 94 16 112/76 96 11/16/17 22:45 98.2 F 98 14 139/91 94 11/16/17 22:15 98.2 F 96 14 138/87 98 11/16/17 21:45 97.4 F L 91 19 142/92 96 11/16/17 21:08 98.5 F 86 20 154/91 96 11/16/17 20:58 98.5 F 87 20 154/102 100 11/16/17 20:48 98.2 F 112 20 139/99 99 11/16/17 20:38 98.2 F 107 20 153/101 99 11/16/17 20:28 98.4 F 107 20 155/92 99 11/16/17 20:18 98.4 F 106 20 161/100 99 11/16/17 20:08 98.4 F 102 20 147/94 98 Intake and Output 11/17/17 11/17/17 11/17/17 07:59 15:59 23:59 Intake Total 400 / 400 1200 / 1200 Output Total 300 / 300 Balance 100 / 100 1200 / 1200 Intake: IV Fluids 100 / 100 1000 / 1000 0.9 % Sodium Chloride 1,000 ML 1000 / 1000 @ 75 mls/hr IVC .[id number] [facility] Rx #:[id number] Ancef 2,000 MG In Dextrose 5% 100 / 100 100 ML @ 200 mls/hr IVPB Q8HR [facility] Rx#:[id number] Oral 300 / 300 200 / 200 Output: Catheter 300 / 300 Other: Meal Breakfast Percent of Meal Consumed 50% Blood Glucose* 293 270 Incision: clean and dry (dressings c/d/i with no visible drainage or surrounding erythema, no calf tenderness to palpation. good dorsiflexion of foot , grossly NV intact. ) - Labs CBC & BMP: 11/17/17 01:46 11/17/17 01:46 Labs: Abnormal lab results RBC 3.90 M/mcL (4.19-5.50) L 11/15/17 05:05 Hgb 12.7 g/dL (12.9-16.9) L 11/17/17 01:46 Sodium 134 mEq/L (136-145) L 11/17/17 01:46 Creatinine 1.53 mg/dL (0.70-1.30) H 11/17/17 01:46 Est GFR ( Amer) 54 (> 60) L 11/17/17 01:46 Est GFR (Non-Af Amer) 45 (> 60) L 11/17/17 01:46 Glucose 343 mg/dL (70-105) H 11/17/17 01:46 POC Glucose 259 mg/dL (70-99) H 11/16/17 21:28 Hemoglobin A1c 6.9 % (-5.6) H 11/15/17 05:05 Urine Protein 100 mg/dL (Neg-Trace) H 11/14/17 19:37 Ur Squamous Epith Cells Many per lpf (None-Few) H 11/14/17 19:37 - VTE Documentation of Mechanical Device: Intermittent pneumatic compression device Consult Discharge Plan - Plan Referrals: Gabriel So DO [Primary Care Provider] -
[2017-11-18 01:54] LABS: Hematocrit 33.1 % (37.5-50.1)
[2017-11-18 02:25] LABS: Calcium 8.5 mg/dL (8.6-10.3); Potassium 4.3 mEq/L (3.5-5.1)
[2017-11-18] MEDS: *HR* HYDROcodone/Acet 5/325 mg TABLET PO PRN (04:10)
[2017-11-18] MEDS: *HR* Enoxaparin 30 MG/0.3 ML SYRINGE SQ SCH ×2 (05:36→18:05)
[2017-11-18] MEDS: 0.9 % Sodium Chloride 1,000 ML IVC SCH ×2 (07:54→15:59)
[2017-11-18] MEDS: Cyanocobalamin (B-12) 1,000 MCG TABLET PO SCH (07:58)
[2017-11-18] MEDS: Insulin LISPRO 300 UNITS/3 ML VIAL SQ SCH ×4 (07:58→21:43)
[2017-11-18] MEDS ORDERED: Milk and Molasses Enema 200 ML RC ONE (12:29)
--- NOTE | 2017-11-18 13:20 | Electrocardiograph Report ---
[place] [id number] Test Date: 2017-11-16 Pat Name: Alli Handley Department: 114 Room: [facility] Gender: M Gem Expert: ROLDAN : 1940 Requested By: Vahid Ashley Order Number: [id number] Reading MD: Elle Banegas Measurements Intervals [place] Rate: 95 P: 32 PA: 192 QRS: -9 QRSD: 101 T: 30 QT: 344 QTc: 397 Interpretive Statements SINUS RHYTHM INCOMPLETE RIGHT BUNDLE BRANCH BLOCK Electronically Signed On 11-18-2017 13:18:15 EDT by Elle Banegas
--- NOTE | 2017-11-18 13:26 | Internal Med Progress Note ---
<Vahid Ashley - Last Filed: 11/18/17 14:43> Date of Encounter: 11/18/17 Time of Encounter: 13:24 - Assessment and plan (1) Femur fracture, left Current Visit: Yes Status: Acute Assessment and plan: Patient has surgery 2 days ago. Patient states he is doing well. Patient alert this morning. Physical therapy states the patient had a less difficult time getting to chair today. for rehabilitation. Recommend physical therapy as tolerated. There is a bed available an extended care facility. However, patient remains tachycardic, and his oxygen saturation has improved some but is 93% on room air. We will keep him here for 1 more day as I think this would benefit him. Followed by Ortho. Qualifiers: Encounter type: initial encounter Femur location: shaft Fracture type: closed Fracture morphology: spiral Fracture alignment: displaced Qualified Code(s): S72.342A - Displaced spiral fracture of shaft of left femur, initial encounter for closed fracture (2) DM2 (diabetes mellitus, type 2) Current Visit: Yes Status: Acute Assessment and plan: Currently on sliding scale. Glucose is elevated at 391. Patient has oral glitazone 50 mg, glipizide 10 mg, metformin 500 twice a day at home that he is not currently taking here. We will add 10 units of Levemir twice daily to improve strict glucose control. Qualifiers: Diabetes mellitus bed bug exterminator insulin use: without bed bug exterminator use Diabetes mellitus complication detail: with chronic kidney disease Chronic kidney disease stage: stage 2 (mild) Qualified Code(s): E11.22 - Type 2 diabetes mellitus with diabetic chronic kidney disease; N18.2 - Chronic kidney disease, stage 2 (mild); N18.2 - Chronic kidney disease, stage 2 (mild) (3) HTN (hypertension) Current Visit: Yes Status: Acute Assessment and plan: Continue home medications. Qualifiers: Hypertension type: essential hypertension Qualified Code(s): I10 - Essential (primary) hypertension (4) Left leg pain Current Visit: Yes Status: Acute Assessment and plan: See above. (5) CKD (chronic kidney disease) stage 3, GFR 30-59 ml/min Current Visit: Yes Status: Acute Assessment and plan: Stable. (6) Constipation Current Visit: Yes Status: Acute Assessment and plan: Patient reports not having bowel movement since today he fell. Currently on docusate. Added senna yesterday. Will provide enema today. Not having any nausea or vomiting at this time. We will hold off on imaging and recommended reconsideration tomorrow if constipation persists. Abdomen soft, nontender, no peritoneal signs on exam. Qualifiers: Constipation type: unspecified constipation type Qualified Code(s): K59.00 - Constipation, unspecified (7) DVT prophylaxis Current Visit: Yes Status: Acute Assessment and plan: Currently on 30 mg subq enoxaparin every 12 hours. For outpatient managment per ortho, will require lovenox for 2 weeks then aspirin 325mg daily for 4 weeks for DVT prophylaxis. - Subjective Interval history: Patient had no events overnight. Oxygen saturation was reported to be 93% on room air. Patient has not had a bowel movement since he fell. He was given docusate as well as senna. Has bed ready for placement in ECF for rehabilitation. - Constitutional Vitals: Temp Pulse Resp BP Pulse Ox 98.4 F 73 17 132/80 94 11/18/17 12:35 11/18/17 12:35 11/18/17 12:35 11/18/17 12:35 11/18/17 12:35 General appearance: Present: A&O X 3, no acute distress, answers questions appropriately - ENT ENT exam: Present: mucous membranes moist, normal exam - Neck Neck exam general surgery: Present: supple, trachea midline - Respiratory Respiratory exam: Present: CTAB - Cardiovascular Cardiovascular exam: Present: RRR, +S1, +S2. Absent: JVD - GI/Abdominal GI/Abdominal exam: Present: no peritoneal signs. Absent: firm, guarding, tenderness - Extremities Exam Additional comments: Surgery site was clean, intact, no areas of pus, erythema, induration. Internal Medicine: Result - Labs CBC & Chem 7: 11/18/17 01:00 11/18/17 01:00 Labs: Short CBC 11/18/17 Range/Units 01:00 Hgb 11.0 L D (12.9-16.9) g/dL Hct 33.1 L (37.5-50.1) % BMP 11/18/17 01:00 Sodium 134 L Potassium 4.3 Chloride 106 Carbon Dioxide 22 L BUN 33 H Creatinine 1.50 H Glucose 267 H Calcium 8.5 L - ABG Interpretation ABG results: PT/INR, D-dimer PT 11.7 Seconds (9.4-12.1) 11/15/17 05:05 - Impressions Impressions Chest X-Ray 11/17/17 16:14 IMPRESSION: No evidence of acute congestive heart failure or pneumonia. D/ / 11/17/2017 16:42:09 Arvind Zambrano MD / patricia Interpreting Provider: Arvind Zambrano MD - VTE Documentation of Mechanical Device: Intermittent pneumatic compression device Consult Discharge Plan - Plan Referrals: Gabriel So DO [Primary Care Provider] - <Brian Springer - Last Filed: 11/18/17 15:00> Date of Encounter: 11/18/17 - Constitutional Vitals: Temp Pulse Resp BP Pulse Ox 98.4 F 113 18 134/87 96 11/18/17 12:35 11/18/17 13:30 11/18/17 13:30 11/18/17 13:30 11/18/17 13:30 Internal Medicine: Result - Labs CBC & Chem 7: 11/18/17 01:00 11/18/17 01:00 Labs: Short CBC 11/18/17 Range/Units 01:00 Hgb 11.0 L D (12.9-16.9) g/dL Hct 33.1 L (37.5-50.1) % BMP 11/18/17 01:00 Sodium 134 L Potassium 4.3 Chloride 106 Carbon Dioxide 22 L BUN 33 H Creatinine 1.50 H Glucose 267 H Calcium 8.5 L - ABG Interpretation ABG results: PT/INR, D-dimer PT 11.7 Seconds (9.4-12.1) 11/15/17 05:05 - Impressions Impressions Chest X-Ray 11/17/17 16:14 IMPRESSION: No evidence of acute congestive heart failure or pneumonia. D/ / 11/17/2017 16:42:09 Arvind Zambrano MD / patricia Interpreting Provider: Arvind Zambrano MD - Attending Attestation I performed an independent interview and examine this patient. I agree with the findings, assessment, and plan of Dr. Ashley, internal medicine summer intern. She is currently postop day 2. He is doing reasonably well but is imminently tachycardic. He remains otherwise hemodynamically stable. Renal function is trending favorably with a creatinine of 1.5 down from 1.53. She states his pain control is improved. Anticipate discharge to facility likely tomorrow as long as he remains stable and his tachycardia resolves. It may be elevated due to discomfort. No obvious infection noted. Hemoglobin remained stable. He does have a mild acute blood loss anemia due to perioperative blood loss, which is expected. We will repeat a hemoglobin in the morning. All else as above.
--- NOTE | 2017-11-18 15:20 | Orthopedics Progress Note ---
Date of Encounter: 11/18/17 Time of Encounter: 15:18 Subjective Principal diagnosis: POD# s/p - left proximal femur IM nailing with cerclage 11/16 Interval history: Patient is comfortable sitting up in chair Left lower extremity: Dressings are clean dry intact Calves are soft and nontender Neurovascular intact distally Assessment: Postoperative day #2, stable Plan: Discharge planning to rehabilitation today Toe-touch weightbearing to left lower extremity Continue DVT prophylaxis with Lovenox 2 weeks Follow-up with Catrachita Mcqueen PA-C in 2 weeks Objective Vital signs: Vital Signs Temp Pulse Resp BP Pulse Ox 11/18/17 13:30 113 18 134/87 96 11/18/17 12:35 98.4 F 73 17 132/80 94 11/18/17 07:36 98.9 F 100 18 145/83 97 11/18/17 04:12 98.0 F 102 16 154/80 98 11/18/17 00:44 99.0 F 106 16 145/82 95 11/17/17 23:54 98.1 F 112 20 142/85 95 11/17/17 19:55 98.3 F 106 16 127/69 95 11/17/17 18:00 97.7 F 68 17 138/78 94 11/17/17 17:34 69 115/69 95 11/17/17 16:02 106 96 11/17/17 15:35 96 11/17/17 15:33 110 Intake and Output 11/17/17 11/18/17 11/18/17 23:59 07:59 15:59 Intake Total 100 / 100 350 / 350 360 / 360 Output Total 100 / 100 700 / 700 100 / 100 Balance 0 / 0 -350 / -350 260 / 260 Intake: Oral 100 / 100 350 / 350 360 / 360 Output: Urine 100 / 100 100 / 100 Straight Cath 700 / 700 Other: Meal Lunch Percent of Meal Consumed 100% Weight 111.5 kg Blood Glucose* 270 435 391 Patient Weight 11/18/17 23:59 Weight 111.5 kg - Labs CBC & BMP: 11/18/17 01:00 11/18/17 01:00 Labs: Abnormal lab results RBC 3.90 M/mcL (4.19-5.50) L 11/15/17 05:05 Hgb 11.0 g/dL (12.9-16.9) L D 11/18/17 01:00 Hct 33.1 % (37.5-50.1) L 11/18/17 01:00 Sodium 134 mEq/L (136-145) L 11/18/17 01:00 Carbon Dioxide 22 mEq/L (23-29) L 11/18/17 01:00 BUN 33 mg/dL (8-23) H 11/18/17 01:00 Creatinine 1.50 mg/dL (0.70-1.30) H 11/18/17 01:00 Est GFR ( Amer) 55 (> 60) L 11/18/17 01:00 Est GFR (Non-Af Amer) 46 (> 60) L 11/18/17 01:00 Glucose 267 mg/dL (70-105) H 11/18/17 01:00 POC Glucose 391 mg/dL (70-99) H 11/18/17 12:04 Hemoglobin A1c 6.9 % (-5.6) H 11/15/17 05:05 Calcium 8.5 mg/dL (8.6-10.3) L 11/18/17 01:00 Urine Protein 100 mg/dL (Neg-Trace) H 11/14/17 19:37 Ur Squamous Epith Cells Many per lpf (None-Few) H 11/14/17 19:37 - VTE Documentation of Mechanical Device: Intermittent pneumatic compression device Consult Discharge Plan - Plan Referrals: Gabriel So DO [Primary Care Provider] -
[2017-11-18] MEDS: *HR* FentaNYL (PF) 100 MCG/2 ML VIAL IVP PRN ×2 (15:55→20:20)
[2017-11-18] MEDS: *HR* Metformin 500 MG TABLET PO SCH (15:55)
[2017-11-18] MEDS: Insulin DETEMIR 100 UNIT/ML X5UNITS SQ SCH (20:20)
[2017-11-19 06:32] LABS: Basophils % 0.2 %; Eosinophils % 0.4 %; Hematocrit 28.2 % (37.5-50.1); Immature Granulocytes % 0.4 % (0-4); Lymphocytes # 1.7 K/mcL (0.6-4.6); Lymphocytes % 17.8 %; Mean Corpuscular HGB Conc 33.3 g/dL (31.6-35.5); Mean Corpuscular Hemoglobin 30.6 pg (28.0-33.3); Mean Corpuscular Volume 91.9 fL (83.0-100.0); Mean Platelet Volume 11.3 fL (9.4-12.4); Monocytes # 1.2 K/mcL (0.0-1.3); Monocytes % 12.4 %; Neutrophils # 6.6 K/mcL (1.6-8.9); Platelet Count 233 K/mcL (140-400); Red Blood Count 3.07 M/mcL (4.19-5.50); Red Cell Distribution Width 14.2 % (11.5-14.5); Segmented Neutrophils % 68.8 %
[2017-11-19 06:33] LABS: Hemoglobin 9.4 g/dL (12.9-16.9)
[2017-11-19] MEDS: *HR* Enoxaparin 30 MG/0.3 ML SYRINGE SQ SCH (06:38)
[2017-11-19] MEDS: *HR* HYDROcodone/Acet 5/325 mg TABLET PO PRN (06:38)
[2017-11-19 06:48] LABS: BUN/Creatinine Ratio 27 (6-26); Blood Urea Nitrogen 32 mg/dL (8-23); Calcium 8.6 mg/dL (8.6-10.3); Carbon Dioxide 22 mEq/L (23-29); Chloride 107 mEq/L (98-107); Glucose 308 mg/dL (70-105); Osmolality,Calculated 301 (280-300); Potassium 3.9 mEq/L (3.5-5.1); Sodium 136 mEq/L (136-145); eGFR For African Americans > 60 (> 60); eGFR For Non-African Americans 60 (> 60)
[2017-11-19] MEDS: *HR* Metformin 500 MG TABLET PO SCH (09:34)
[2017-11-19] MEDS: Cyanocobalamin (B-12) 1,000 MCG TABLET PO SCH (09:34)
[2017-11-19] MEDS: Insulin LISPRO 300 UNITS/3 ML VIAL SQ SCH ×2 (09:35→11:55)
[2017-11-19] MEDS: Insulin DETEMIR 100 UNIT/ML X5UNITS SQ SCH (09:35)
--- NOTE | 2017-11-19 11:05 | Discharge Summary ---
Date of Encounter: 11/19/17 Time of Encounter: 11:05 Hospital course: Mr. Handley is a 77 year old male - Time Spent with Patient Total time spent providing and/or coordinating discharge services: - Discharge Medications Prescriptions: HYDROcodone/Acet 5/325 mg [Diamond 5-325 mg] 1 tab PO Q6H PRN 7 Days #30 tab PRN Reason: Moderate Pain Home Medications: Acetaminophen [Tylenol Arthritis] 650 mg PO BID 11/14/17 [History] Allopurinol [Zyloprim 100 MG] 100 mg PO DAILY 11/14/17 [History] Cyanocobalamin (Vitamin B-12) [Vitamin B12] 1,000 mcg PO DAILY 11/14/17 [History ] Glucosamine/Chondr Isaacs A Sod [Glucosamine-Chondroitin Tablet] 1 each PO BID 11/14 [History] Lisinopril [Zestril] 5 mg PO DAILY 11/14/17 [History] Naproxen Sodium [Aleve] 220 mg PO Q12H PRN 11/14/17 [History] Pioglitazone [Actos] 15 mg PO DAILY 11/14/17 [History] glipiZIDE [Glipizide ER] 20 mg PO DAILY 11/14/17 [History] metFORMIN [Glucophage] 500 mg PO BIDWM 11/14/17 [History] Enoxaparin [Lovenox] 30 mg SQ Q12HR syringe 11/19/17 [Rx] HYDROcodone/Acet 5/325 mg [Diamond 5-325 mg] 1 tab PO Q6H PRN 7 Days #30 tab 11/19 [Rx] Allergies/Adverse Reactions: 3 Allergy/AdvReac Type Severity Reaction Status Date / Time No Known Allergies Allergy Verified 11/14/17 19:21 Date of admission: 11/14/17 21:43 Primary care physician: Gabriel So, DO Consults: 11/16/17 21:19 Consult to Occupational Therapy [CONS] Routine Comment: Evaluate, develop and implement POC Reason for Consult: ADLs Does patient have active BEDREST order?: No Is patient medically & hemodynamically stable?: Yes Patient assessed for mobility or mobilized this visit?: No Consult to Orthopedic Navigator [CONS] [CONS] Routine Consult to Physical Therapy [CONS] Routine Comment: Evaluate, develop and implement POC Reason for Consult: Ambulation, transfers TTWB to LLE Does patient have active BEDREST order?: No Is patient medically & hemodynamically stable?: Yes Patient assessed for mobility or mobilized this visit?: No Consult to Weigher Packing [CONS] Routine Reason for SW Consult: placement RT Post Op Consult [CONS] Routine - Constitutional Vitals: Temp Pulse Resp BP Pulse Ox 99.2 F 92 14 137/73 92 11/19/17 07:15 11/19/17 07:15 11/19/17 07:15 11/19/17 07:15 11/19/17 09:22 General appearance: Present: A&O X 3, no acute distress, answers questions appropriately - Head Head exam: Present: atraumatic, normocephalic - Eye Eye exam: Present: PERRL, conjuntiva pink, sclera anicteric Pupils: Present: PERRL - Neck Neck exam general surgery: Present: supple, trachea midline. Absent: lymphadenopathy - Respiratory Respiratory exam: Present: CTAB. Absent: accessory muscle use, rales, rhonchi, wheezes - Cardiovascular Cardiovascular exam: Present: RRR, +S1, +S2. Absent: diastolic murmur, gallop, rubs, systolic murmur - GI/Abdominal GI/Abdominal exam: Present: normal bowel sounds, soft, no peritoneal signs. Absent: distended, tenderness - Expanded Lower Extremities Exam Lower Leg exam: Present: normal inspection (dressing from femur fracture surgery clean, dry and intact) - Neurological Exam Neurological exam: Present: CN II-XII intact, oriented X3, no focal deficits. Absent: pronater drift, facial droop, speech deficit - Skin Skin exam: Present: dry, intact - Patient Status Disposition: Transfer Inpatient Rehab Fac Condition: Fair Functional capacity at discharge: uses cane/walker Overall status at discharge: patient is back to baseline - Discharge Instructions Follow Up With: Gabriel So DO [Primary Care Provider] - - VTE Documentation of Mechanical Device: Intermittent pneumatic compression device
[2017-11-19 11:34] VITALS: BP 152/81
--- NOTE | 2017-11-19 11:57 | Physician Discharge Referral ---
ExtendedCare Referral Info Provider in Charge after Transfer: PCP Institutional Level of Care: Skilled Expected Duration of Placement: left femur fractire s/p surgery Prognosis: Good - Transfer Medications Prescriptions: HYDROcodone/Acet 5/325 mg [[place] 5-325 mg] 1 tab PO Q6H PRN 7 Days #30 tab PRN Reason: Moderate Pain Home Medications: Acetaminophen [Tylenol Arthritis] 650 mg PO BID 11/14/17 [History] Allopurinol [Zyloprim 100 MG] 100 mg PO DAILY 11/14/17 [History] Cyanocobalamin (Vitamin B-12) [Vitamin B12] 1,000 mcg PO DAILY 11/14/17 [History ] Glucosamine/Chondr Isaacs A Sod [Glucosamine-Chondroitin Tablet] 1 each PO BID 11/14 [History] Lisinopril [Zestril] 5 mg PO DAILY 11/14/17 [History] Naproxen Sodium [Aleve] 220 mg PO Q12H PRN 11/14/17 [History] Pioglitazone [Actos] 15 mg PO DAILY 11/14/17 [History] glipiZIDE [Glipizide ER] 20 mg PO DAILY 11/14/17 [History] metFORMIN [Glucophage] 500 mg PO BIDWM 11/14/17 [History] Enoxaparin [Lovenox] 30 mg SQ Q12HR syringe 11/19/17 [Rx] HYDROcodone/Acet 5/325 mg [[place] 5-325 mg] 1 tab PO Q6H PRN 7 Days #30 tab 11/19 [Rx] Allergies/Adverse Reactions: 3 Allergy/AdvReac Type Severity Reaction Status Date / Time No Known Allergies Allergy Verified 11/14/17 19:21 - Respiratory Orders Smoking Cessation: Smoking cessation has been advised. For more information, call the [place] Tobacco Quit Line at 4-120-OBMX-NOW. - Advance Directives Code Status: Full Code - Rehabiliation Orders Rehab Potential: Good Rehab Orders: Evaluation for Physical Therapy, Evaluation for Occupational Therapy CERTIFICATION: I certify that the transfer of the above named patient to an Extended Care Facility is necessary for the continuing treatment of the diagnosis listed. The above information is true and accurate reflection of patient's current condition. Confidential - Redisclosure prohibited without a patient's written consent.
== END 2017-11-19 14:02 | DRG 482 ==
LOC: EMEROO 18:01 → 3NENU 18:01
PROVIDERS: ADMIT Family Medicine; ATTEND Internal Medicine

== ENCOUNTER 2021-10-06 07:27 | Observation (INO) ==
[2021-10-06] MEDS ORDERED: CeFAZolin Syr 2,000MG/20 ML 2,000 MG/20 ML SYRINGE IVPB ONE (07:53)
[2021-10-06] MEDS ORDERED: Ringers Solution, Lactated 1,000 ML IVC SCH (08:00)
[2021-10-06] MEDS ORDERED: Gentamicin 440 MG in 0.9 % Sodium Chloride 100 ML IVPB ONE (08:00)
[2021-10-06] MEDS ORDERED: Acetaminophen IV 1,000 MG/100 ML BAG IVPB ONE (08:22)
[2021-10-06] MEDS ORDERED: Famotidine 20 MG/2 ML VIAL IVP ONE (08:22)
[2021-10-06] MEDS ORDERED: *HR* HYDROmorphone PF 0.5 MG/0.5 ML SYRINGE IVP PRN (08:26)
[2021-10-06] MEDS ORDERED: *HR* OxyCODONE Immed Rel 5 MG TABLET PO PRN (08:26)
[2021-10-06] MEDS ORDERED: Ondansetron 4 MG/2 ML VIAL IVP PRN ×2 (08:26→16:57)
[2021-10-06] MEDS ORDERED: *HR* FentaNYL (PF) 100 MCG/2 ML VIAL ONE (09:02)
[2021-10-06] MEDS ORDERED: *HR* Succinylcholine 200 MG/10 ML VIAL IVP ONE (09:03)
[2021-10-06] MEDS ORDERED: Lidocaine HCL 4 ML Topical Solution (Laryng-O-Jet Kit Sterile Pak) TP ONE (09:03)
[2021-10-06] MEDS ORDERED: Lidocaine -MPF 2% 5 ML VIAL ONE (09:04)
[2021-10-06] MEDS ORDERED: *HR* Propofol 200 MG/20 ML VIAL IVP ONE (09:04)
[2021-10-06] MEDS ORDERED: Vancomycin 1,000 MG VIAL ONE (09:44)
[2021-10-06] MEDS ORDERED: Povidone-Iodine 45 ML, Sodium Chloride IRRigation 1,000 ML IR ONE (10:00)
[2021-10-06] MEDS ORDERED: TOTAL JOINT MIXTURE (100ML) INTRAART ONE (10:00)
[2021-10-06] MEDS ORDERED: *HR* Phenylephrine 10 MG/ML VIAL ONE ×2 (11:08→11:45)
[2021-10-06] MEDS ORDERED: Tranexamic Acid 1,000 MG/10 ML VIAL ONE (11:14)
[2021-10-06] MEDS ORDERED: Ondansetron 4 MG/2 ML VIAL ONE (11:18)
[2021-10-06] MEDS ORDERED: *HR* HYDROMORPHONE 2 MG/ML VIAL ONE (14:07)
[2021-10-06] MEDS ORDERED: Sennosides 8.6 MG TABLET PO PRN (16:57)
[2021-10-06] MEDS ORDERED: Naloxone 0.4 MG/ML INJ IVP PRN (16:57)
[2021-10-06] MEDS ORDERED: *HR* Promethazine 25 MG/ML VIAL IM PRN (16:57)
[2021-10-06] MEDS ORDERED: MOM Conc 10 ML UD.LIQ PO PRN (16:57)
[2021-10-06] MEDS: *HR* Metformin 500 MG TABLET PO SCH (17:54)
[2021-10-06] MEDS: Ascorbic Acid 500 MG TABLET PO SCH (17:55)
[2021-10-06] MEDS: Ketorolac 30 MG/ML VIAL IVP SCH ×2 (17:55→23:57)
[2021-10-06] MEDS: Dulaglutide [Trulicity] 0.75 MG/0.5 ML Pen.Injctr SQ SCH (19:04)
[2021-10-06] MEDS: CeFAZolin 2 GM/120 ML BAG IVPB SCH (19:45)
[2021-10-07] MEDS ORDERED: *HR* Dextrose 50 % in Water (Syg) 50 ML SYRINGE IVP PRN (00:39)
[2021-10-07] MEDS ORDERED: D5% in Water 1,000 ML IVC PRN (00:39)
[2021-10-07] MEDS ORDERED: Dextrose Gel 15 GM/37.5 ML TUBE PO PRN ×2 (00:39)
[2021-10-07] MEDS: Insulin LISPRO 300 UNITS/3 ML VIAL SUBQ SCH ×5 (00:48→20:30)
[2021-10-07] MEDS: CeFAZolin 2 GM/120 ML BAG IVPB SCH ×3 (03:19→18:00)
[2021-10-07] MEDS: Ringers Solution, Lactated 1,000 ML IVC SCH ×2 (03:19→16:04)
[2021-10-07 04:47] LABS: Hematocrit 35.8 % (37.5-50.1); Hemoglobin 11.7 g/dL (12.9-16.9); Immature Granulocytes % 0.3 % (0-4); Lymphocytes # 1.2 K/mcL (0.6-4.6); Lymphocytes % 10.3 %; Mean Corpuscular HGB Conc 32.7 g/dL (31.6-35.5); Mean Corpuscular Hemoglobin 31.1 pg (28.0-33.3); Mean Corpuscular Volume 95.2 fL (83.0-100.0); Mean Platelet Volume 11.4 fL (9.4-12.4); Monocytes # 0.9 K/mcL (0.0-1.3); Monocytes % 7.7 %; Neutrophils # 9.4 K/mcL (1.6-8.9); Platelet Count 184 K/mcL (140-400); Red Blood Count 3.76 M/mcL (4.19-5.50); Red Cell Distribution Width 13.4 % (11.5-14.5); Segmented Neutrophils % 81.7 %; White Blood Count 11.5 K/mcL (4.3-11.1)
[2021-10-07 05:03] LABS: Calcium 8.2 mg/dL (8.6-10.3); Potassium 5.1 mEq/L (3.5-5.1)
[2021-10-07] MEDS: Ketorolac 30 MG/ML VIAL IVP SCH ×4 (05:46→23:55)
[2021-10-07] MEDS: *HR* Pioglitazone 15 MG TABLET PO SCH (08:34)
[2021-10-07] MEDS: Multivit/Ca/Min/Fe/FA 1 TAB TABLET PO SCH (08:34)
[2021-10-07] MEDS: allopurinoL 100 MG TABLET PO SCH (08:34)
[2021-10-07] MEDS: *HR* Metformin 500 MG TABLET PO SCH ×2 (08:34→16:09)
[2021-10-07] MEDS: lisinopriL 5 MG TABLET PO SCH (08:34)
[2021-10-07] MEDS: Ascorbic Acid 500 MG TABLET PO SCH ×2 (08:35→16:09)
[2021-10-07] MEDS: Aspirin Enteric Coated 81 MG Tablet PO SCH (16:09)
[2021-10-07] MEDS: Dulaglutide [Trulicity] 0.75 MG/0.5 ML Pen.Injctr SQ SCH (17:46)
[2021-10-08] MEDS: CeFAZolin 2 GM/120 ML BAG IVPB SCH ×3 (03:30→18:03)
[2021-10-08] MEDS: *HR* OxyCODONE Immed Rel 5 MG TABLET PO PRN ×3 (03:31→21:20)
[2021-10-08 04:46] LABS: Basophils % 0.1 %; Eosinophils # 0.1 K/mcL (0.0-0.6); Eosinophils % 0.6 %; Hematocrit 31.2 % (37.5-50.1); Hemoglobin 10.5 g/dL (12.9-16.9); Immature Granulocytes % 0.3 % (0-4); Lymphocytes # 1.6 K/mcL (0.6-4.6); Lymphocytes % 20.1 %; Mean Corpuscular HGB Conc 33.7 g/dL (31.6-35.5); Mean Corpuscular Hemoglobin 31.7 pg (28.0-33.3); Mean Corpuscular Volume 94.3 fL (83.0-100.0); Mean Platelet Volume 11.3 fL (9.4-12.4); Monocytes # 0.8 K/mcL (0.0-1.3); Monocytes % 10.5 %; Neutrophils # 5.3 K/mcL (1.6-8.9); Platelet Count 148 K/mcL (140-400); Red Blood Count 3.31 M/mcL (4.19-5.50); Red Cell Distribution Width 13.7 % (11.5-14.5); Segmented Neutrophils % 68.4 %; White Blood Count 7.8 K/mcL (4.3-11.1)
[2021-10-08 05:00] LABS: Calcium 8.5 mg/dL (8.6-10.3); Potassium 4.6 mEq/L (3.5-5.1)
[2021-10-08] MEDS: Ketorolac 30 MG/ML VIAL IVP SCH (09:31)
[2021-10-08] MEDS: Multivit/Ca/Min/Fe/FA 1 TAB TABLET PO SCH (09:37)
[2021-10-08] MEDS: Aspirin Enteric Coated 81 MG Tablet PO SCH ×2 (09:37→21:21)
[2021-10-08] MEDS: *HR* Pioglitazone 15 MG TABLET PO SCH (09:37)
[2021-10-08] MEDS: allopurinoL 100 MG TABLET PO SCH (09:37)
[2021-10-08] MEDS: lisinopriL 5 MG TABLET PO SCH (09:37)
[2021-10-08] MEDS: Insulin LISPRO 300 UNITS/3 ML VIAL SUBQ SCH ×3 (09:38→17:59)
[2021-10-08] MEDS: Ascorbic Acid 500 MG TABLET PO SCH ×2 (09:45→17:57)
[2021-10-08] MEDS: *HR* Metformin 500 MG TABLET PO SCH (09:45)
[2021-10-08] MEDS: Insulin DETEMIR 100 UNIT/ML X5UNITS SUBQ SCH (21:24)
[2021-10-09] MEDS: CeFAZolin 2 GM/120 ML BAG IVPB SCH ×3 (04:16→18:22)
[2021-10-09] MEDS: *HR* OxyCODONE Immed Rel 5 MG TABLET PO PRN ×2 (04:59→22:31)
[2021-10-09] MEDS: Multivit/Ca/Min/Fe/FA 1 TAB TABLET PO SCH (07:54)
[2021-10-09] MEDS: allopurinoL 100 MG TABLET PO SCH (07:55)
[2021-10-09] MEDS: Ascorbic Acid 500 MG TABLET PO SCH ×2 (07:55→17:08)
[2021-10-09] MEDS: lisinopriL 5 MG TABLET PO SCH (07:55)
[2021-10-09] MEDS: Aspirin Enteric Coated 81 MG Tablet PO SCH ×2 (07:55→20:04)
[2021-10-09] MEDS: Insulin LISPRO 300 UNITS/3 ML VIAL SUBQ SCH ×3 (07:57→17:08)
[2021-10-09] MEDS: Insulin DETEMIR 100 UNIT/ML X5UNITS SUBQ SCH (20:04)
[2021-10-10] MEDS: allopurinoL 100 MG TABLET PO SCH (08:36)
[2021-10-10] MEDS: Multivit/Ca/Min/Fe/FA 1 TAB TABLET PO SCH (08:36)
[2021-10-10] MEDS: lisinopriL 5 MG TABLET PO SCH (08:37)
[2021-10-10] MEDS: Aspirin Enteric Coated 81 MG Tablet PO SCH ×2 (08:37→20:06)
[2021-10-10] MEDS: Ascorbic Acid 500 MG TABLET PO SCH ×2 (08:37→17:27)
[2021-10-10] MEDS: Insulin LISPRO 300 UNITS/3 ML VIAL SUBQ SCH ×3 (08:40→17:26)
[2021-10-10] MEDS: Insulin DETEMIR 100 UNIT/ML X5UNITS SUBQ SCH (20:06)
[2021-10-10] MEDS: *HR* OxyCODONE Immed Rel 5 MG TABLET PO PRN (20:06)
[2021-10-11] MEDS: ceFAZolin 2,000 MG in 0.9 % Sodium Chloride 100 ML IVPB SCH ×4 (00:28→23:11)
[2021-10-11] MEDS: Multivit/Ca/Min/Fe/FA 1 TAB TABLET PO SCH (08:00)
[2021-10-11] MEDS: Aspirin Enteric Coated 81 MG Tablet PO SCH ×2 (08:00→19:56)
[2021-10-11] MEDS: allopurinoL 100 MG TABLET PO SCH (08:00)
[2021-10-11] MEDS: lisinopriL 5 MG TABLET PO SCH (08:00)
[2021-10-11] MEDS: Ascorbic Acid 500 MG TABLET PO SCH ×2 (08:00→16:20)
[2021-10-11] MEDS: Insulin LISPRO 300 UNITS/3 ML VIAL SUBQ SCH ×3 (08:02→16:21)
[2021-10-11] MEDS ORDERED: Dulaglutide [Trulicity] 0.75 MG/0.5 ML Pen.Injctr SQ SCH (10:30)
[2021-10-11] MEDS: *HR* OxyCODONE Immed Rel 5 MG TABLET PO PRN (16:23)
[2021-10-11] MEDS ORDERED: Insulin DETEMIR 100 UNIT/ML X5UNITS SUBQ SCH (21:00)
[2021-10-12] MEDS: Multivit/Ca/Min/Fe/FA 1 TAB TABLET PO SCH (07:35)
[2021-10-12] MEDS: Ascorbic Acid 500 MG TABLET PO SCH ×2 (07:36→16:49)
[2021-10-12] MEDS: allopurinoL 100 MG TABLET PO SCH (07:36)
[2021-10-12] MEDS: *HR* OxyCODONE Immed Rel 5 MG TABLET PO PRN (07:36)
[2021-10-12] MEDS: lisinopriL 5 MG TABLET PO SCH (07:36)
[2021-10-12] MEDS: Aspirin Enteric Coated 81 MG Tablet PO SCH ×2 (07:36→20:59)
[2021-10-12] MEDS: Insulin LISPRO 300 UNITS/3 ML VIAL SUBQ SCH ×3 (07:37→16:49)
[2021-10-12] MEDS: ceFAZolin 2,000 MG in 0.9 % Sodium Chloride 100 ML IVPB SCH ×2 (07:44→16:49)
[2021-10-12 10:12] VITALS: O2SAT 95
[2021-10-12 10:18] LABS: Basophils % 0.5 %; Eosinophils # 0.2 K/mcL (0.0-0.6); Eosinophils % 1.8 %; Hematocrit 32.6 % (37.5-50.1); Immature Granulocytes % 0.5 % (0-4); Lymphocytes # 1.1 K/mcL (0.6-4.6); Lymphocytes % 13.1 %; Mean Corpuscular HGB Conc 33.7 g/dL (31.6-35.5); Mean Corpuscular Hemoglobin 31.8 pg (28.0-33.3); Mean Corpuscular Volume 94.2 fL (83.0-100.0); Mean Platelet Volume 10.6 fL (9.4-12.4); Monocytes # 0.9 K/mcL (0.0-1.3); Neutrophils # 6.3 K/mcL (1.6-8.9); Platelet Count 253 K/mcL (140-400); Red Blood Count 3.46 M/mcL (4.19-5.50); Red Cell Distribution Width 13.6 % (11.5-14.5); Segmented Neutrophils % 74.1 %; White Blood Count 8.5 K/mcL (4.3-11.1)
[2021-10-12 10:42] LABS: BUN/Creatinine Ratio 21 (6-26); Blood Urea Nitrogen 27 mg/dL (8-23); Calcium 9.2 mg/dL (8.6-10.3); Carbon Dioxide 26 mEq/L (23-29); Chloride 101 mEq/L (98-107); Glucose 235 mg/dL (70-105); Osmolality,Calculated 289 (280-300); Potassium 4.4 mEq/L (3.5-5.1); Sodium 133 mEq/L (136-145); eGFR For African Americans > 60 (> 60); eGFR For Non-African Americans 55 (> 60)
[2021-10-12 15:08] VITALS: BP 118/77; PULSE 93; TEMP 98.7
[2021-10-12 16:25] LABS: Influenza A PCR Negative (Negative); Influenza B PCR Negative (Negative); Resp. Syncytial Virus PCR Negative (Negative)
[2021-10-12 16:29] LABS: SARS-CoV-2 by PCR (In House) Negative (Negative)
[2021-10-12] MEDS ORDERED: Insulin DETEMIR 100 UNIT/ML X5UNITS SUBQ SCH (21:00)
== END 2021-10-12 23:12 | disposition other institution (70) ==
LOC: 4WAOSI 07:27 → SDCAOSI 07:27 → 4WAOSI 16:44
PROVIDERS: ADMIT Orthopaedic Surgery; ATTEND Orthopaedic Surgery